=== PATIENT | female | born 1985 | race African-American/Black ===

== ENCOUNTER 2017-07-29 17:04 | Inpatient (IN) | payer SELFPAY ==
[~2017-07-29] VITALS: Ht 172.7 cm; Wt 113.4 kg
[2017-07-29] MEDS ORDERED: DEXT 5%/LR + PITOCIN 20UNITS/L 1,000 ML IV SCH ×2 (17:40→20:15)
[2017-07-29] MEDS ORDERED: NALOXONE HCL 0.4 MG/ML 1ML VIAL IM PRN (17:45)
[2017-07-29] MEDS ORDERED: METHYLERGONOVINE MALEATE 0.2 MG/ML IM PRN (17:45)
[2017-07-29] MEDS ORDERED: CARBOPROST TROMETHAMINE 250 MCG/ML AMPUL IM PRN (17:45)
[2017-07-29 17:58] LABS: CLARITY URINE CLEAR (CLEAR); COLOR URINE YELLOW (YELLOW); KETONES URINE 2+ (NEGATIVE); LEUKOCYTE ESTERASE URINE 3+ (NEGATIVE); NITRITE URINE NEGATIVE (NEGATIVE); OCCULT BLOOD URINE NEGATIVE (NEGATIVE); PH URINE 6.5 (4.5-8.0); PROTEIN URINE NEGATIVE (NEGATIVE); SPECIFIC GRAVITY URINE 1.015 (1.005-1.030); UROBILINOGEN URINE 0.2 E.U./dL (0.2-1.0)
[2017-07-29 17:59] LABS: BASOPHILS % 0.1 % (0.0-2.0); EOSINOPHILS % 0.4 % (0.0-5.0); HEMATOCRIT. 40.8 % (36.0-48.0); HEMOGLOBIN. 14.5 g/dL (12.0-16.0); LYMPHOCYTES % 23.6 % (20.0-50.0); MEAN CORPUSCULAR HEMOGLOBIN 30.8 pg (28.0-32.0); MEAN CORPUSCULAR VOLUME 86.9 fL (81.0-99.0); MEAN PLATELET VOLUME 10.5 fl (7.4-10.4); MONOCYTES % 5.9 % (2.0-8.0); PLATELET 111 x1000/uL (130-400); RED BLOOD CELL COUNT 4.69 mill/uL (4.2-5.4); RED CELL DISTRIBUTION WIDTH 14.6 % (11.6-14.6)
[2017-07-29] MEDS ORDERED: LIDOCAINE HCL 1% 20ML VIAL (Pyxis) INJ INFIL NR (18:00)
[2017-07-29] MEDS ORDERED: PENICILLIN G POTASSIUM 5 MMU in DEXT 5% WATER 100 ML IV NR (18:00)
[2017-07-29] MEDS: LACTATED RINGERS 1,000 ML IV SCH ×2 (18:06→20:32)
[2017-07-29 18:08] LABS: PARTIAL THROMBOPLASTIN TIME 24.3 sec (23.4-31.0); PROTHROMBIN TIME 10.2 sec (9.4-11.6)
[2017-07-29] MEDS ORDERED: LIDOCAINE HCL/PF 1% 10 MG/ML 30ML VIAL INFIL NR (18:15)
[2017-07-29 18:30] LABS: *AMPHETAMINES SCREEN URINE NEGATIVE (NEGATIVE)
[2017-07-29 18:31] LABS: *BARBITURATES SCREEN URINE NEGATIVE (NEGATIVE); *BENZODIAZEPINES SCREEN URINE NEGATIVE (NEGATIVE); *COCAINE SCREEN URINE NEGATIVE (NEGATIVE); METHADONE URINE SCREEN NEGATIVE (NEGATIVE); OPIATES URINE SCREEN NEGATIVE (NEGATIVE); PHENCYCLIDINE URINE SCREEN NEGATIVE (NEGATIVE)
[2017-07-29 18:32] LABS: CANNABINOID URINE SCREEN NEGATIVE (NEGATIVE)
[2017-07-29 18:42] LABS: HEPATITIS B SURFACE ANTIGEN NEGATIVE; RUBELLA IGG 183.6 IU/mL (4.99-10)
[2017-07-29] MEDS ORDERED: PENICILLIN G POTASSIUM 2.5 MMU in DEXTROSE 5% WATER 50 ML IV SCH (23:00)
[2017-07-29] MEDS: BUTORPHANOL TARTRATE 2 MG/ML VIAL IV PRN (23:58)
[2017-07-30] MEDS: BUTORPHANOL TARTRATE 2 MG/ML VIAL IV PRN (02:03)
[2017-07-30] MEDS ORDERED: LANOLIN OINT 0.25 GM TUBE TOP PRN (02:15)
[2017-07-30] MEDS: ACETAMINOPHEN WITH CODEINE 300/30MG TABLET PO PRN ×4 (04:38→19:35)
[2017-07-30 05:10] VITALS: BP 141/80
[2017-07-30 08:00] VITALS: BP 119/60
[2017-07-30 10:20] LABS: BASOPHILS % 0.1 % (0.0-2.0); EOSINOPHILS % 0.1 % (0.0-5.0); HEMATOCRIT. 41.2 % (36.0-48.0); HEMOGLOBIN. 14.2 g/dL (12.0-16.0); LYMPHOCYTES % 14.8 % (20.0-50.0); MEAN CORPUSCULAR HEMOGLOBIN 30.3 pg (28.0-32.0); MEAN CORPUSCULAR VOLUME 88.2 fL (81.0-99.0); MEAN PLATELET VOLUME 10.8 fl (7.4-10.4); PLATELET 122 x1000/uL (130-400); RED BLOOD CELL COUNT 4.67 mill/uL (4.2-5.4); RED CELL DISTRIBUTION WIDTH 14.3 % (11.6-14.6)
[2017-07-30 14:55] VITALS: BP 121/81
[2017-07-30] MEDS ORDERED: DOCUSATE SODIUM 100MG CAPSULE PO SCH (21:00)
[2017-07-30 22:00] VITALS: BP 115/63
[2017-07-31] VITALS: BP 113/66
[2017-07-31] MEDS: ACETAMINOPHEN WITH CODEINE 300/30MG TABLET PO PRN ×2 (05:20→10:05)
[2017-07-31 06:00] VITALS: BP 121/66
[2017-07-31 08:30] VITALS: BP 111/83
[2017-07-31] MEDS ORDERED: PRENATAL VIT/FE FUMARATE/FA TABLET PO SCH (09:00)
== END 2017-07-31 12:30 | disposition home or self-care (01) | DRG 560 ==
LOC: OBSVTOIN 17:04 → L&D 17:04 → 7EST PP/OB 07-30 05:00
PROVIDERS: ADMIT Obstetrics & Gynecology Obstetrics; ATTEND Obstetrics & Gynecology Obstetrics
PROC: 0KQM0ZZ Repair Perineum Muscle, Open Approach (ICD-10-PCS; 2017-07-30)
PROC: 10E0XZZ Delivery of Products of Conception, External Approach (ICD-10-PCS; principal; 2017-07-30 01:40)
DX: O99.824 Streptococcus B carrier state complicating childbirth (principal); M40.46 Postural lordosis, lumbar region; O75.89 Other specified complications of labor and delivery; Z37.0 Single live birth; O70.1 Second degree perineal laceration during delivery; Z3A.41 41 weeks gestation of pregnancy
CPT/HCPCS: 36415; 80305; 81003; 85025; 85610; 85730; 86592; 86703; 86762; 86850; 86900; 87340; G0378; J0595; J2540; J2590; J3490; J7060; J7120